=== PATIENT | female | born 2000 | race Caucasian/White ===

== ENCOUNTER 2019-07-08 01:08 | Emergency (ER) | payer OTHER ==
[~2019-07-08] VITALS: Ht 165.1 cm; Wt 46.3 kg
[2019-07-08 01:15] VITALS: BP 122/90
--- NOTE | 2019-07-08 01:15 | NUR ---
TO BED # 03 AMBULATORY
--- NOTE | 2019-07-08 01:27 | NUR ---
Dr. Oliva examining patient.
[2019-07-08] MEDS ORDERED: LORazepam 0.5 MG TAB PO ONE (01:35)
--- NOTE | 2019-07-08 01:49 | NUR ---
BIB FRIEND STATING THAT SHE WAS AT HOME IN BED WHEN SHE FELT LIKE HER LEFT ARM FELT LIKE IT WENT NUMB AND THEN SHE STARTED SHAKING. STATES WHEN SHE STOOD UP SHE STARTED FEELING LIKE SHE WOULD PASS OUT. PATIENT REPORTS SHE FEELS A LITTLE SHAKEY STILL BU NO OTHER SYMPTOMS AT THIS TIME. LUNGS CLEAR, ABD SOFT AND NON-TENDER.
[2019-07-08 01:51] LABS: BASOPHILS % (AUTO) 0.3 % (0.0-2.0); EOSINOPHILS % (AUTO) 0.3 % (0.0-4.0); HEMOGLOBIN 14.6 g/dL (12.0-16.0); LYMPHOCYTES # (AUTO) 1.9 K/uL (2.5-16.5); LYMPHOCYTES % (AUTO) 22.5 % (20.5-51.1); MEAN CORPUSCULAR HEMOGLOBIN 30 pg (27-31); MEAN CORPUSCULAR HGB CONC 33 g/dL (33-37); MEAN CORPUSCULAR VOLUME 89.3 fL (80-94); MONOCYTES # (AUTO) 0.6 K/uL (0.8-1.0); MONOCYTES % (AUTO) 7.2 % (1.7-9.3); NEUTROPHILS # (AUTO) 5.9 K/uL (1.8-7.7); NEUTROPHILS % (AUTO) 69.7 % (42.2-75.2); PLATELET COUNT (AUTO) 213 K/uL (140-450); RED BLOOD CELL COUNT(AUTO) 4.93 MIL/uL (4.20-5.40); RED CELL DISTRIBUTION WIDTH 13.3 % (11.6-13.7); WHITE BLOOD COUNT (AUTO) 8.4 K/uL (4.5-11.0)
--- NOTE | 2019-07-08 02:12 | NUR ---
PATIENT LAYING IN BED. STATES SHE FEELS BETTER AFTER TAKING THE ATIVAN.
[2019-07-08 02:30] LABS: BARBITURATE, URINE NEG. ng/ml (NEG <=200); BENZODIAZEPINE, URINE NEG. ng/mL (NEG <=200); CANNABINOID, URINE NEG. ng/mL (NEG <=50); COCAINE, URINE NEG. ng/mL (NEG <=300); OPIATE, URINE NEG. ng/mL (NEG <=2000); PHENCYCLIDINE SCREEN,URINE NEG. ng/mL (NEG <=25)
[2019-07-08 02:30] LABS: ALBUMIN 4.6 g/dL (3.4-5.0); ANION GAP 15.4 (8-16); CARBON DIOXIDE 26.4 mmol/L (21-32); CREATININE 0.7 mg/dL (0.6-1.3); FREE T4 (FREE THYROXINE) 0.93 ng/dL (0.76-1.46); POTASSIUM 3.8 mmol/L (3.5-5.1); THYROID STIMULATING HORMONE 2.59 uIU/mL (0.34-3.74); TOTAL BILIRUBIN 0.3 mg/dL (0.0-1.0)
[2019-07-08 02:58] VITALS: BP 120/89
--- NOTE | 2019-07-08 02:58 | NUR ---
Patient discharged with v/s stable. Written and verbal after care instructions given and explained. Patient verbalized understanding. Ambulatory with steady gait. All questions addressed prior to discharge. Advised to follow up with PMD.
== END 2019-07-08 02:58 | disposition home or self-care (01) ==
LOC: MED 01:08
DX: R55 Syncope and collapse (principal); F12.90 Cannabis use, unspecified, uncomplicated; F41.9 Anxiety disorder, unspecified; R00.2 Palpitations
CPT/HCPCS: 36415; 80053; 80305; 81025; 84439; 84443; 85025; 93005; 99284

== ENCOUNTER 2021-09-24 03:41 | Emergency (ER) | payer OTHER ==
[~2021-09-24] VITALS: Ht 165.1 cm; Wt 43.1 kg
[2021-09-24 03:48] VITALS: BP 116/88
--- NOTE | 2021-09-24 03:53 | NUR ---
PT AMBULATED TO BED #11
--- NOTE | 2021-09-24 04:02 | NUR ---
DR. MCKENZIE AT BEDSIDE
[2021-09-24] MEDS ORDERED: NACL 0.9% 1,000 ML IV ONE (04:10)
[2021-09-24] MEDS ORDERED: ONDANSETRON 4 MG/2 ML VIAL IVP ONE ×2 (04:10→06:20)
--- NOTE | 2021-09-24 04:15 | NUR ---
AT TIME OF IV INSERTION AND LAB DRAW, PT DECLINED BLOOD DRAW STATING "I DONT WANT MY BLOOD DRAWN. I ALREADY KNOW WHAT IS GOING WRONG. BUT COULD I GET SOME TORADOL FOR MY PAIN." DR. MCKENZIE NOTIFIED.
--- NOTE | 2021-09-24 04:20 | NUR ---
DR. MCKENZIE AT BEDSIDE
[2021-09-24] MEDS ORDERED: KETOROLAC 15 MG/ML VIAL IVP ONE (04:35)
[2021-09-24 05:33] LABS: BASOPHILS % (AUTO) 0.4 % (0.0-2.0); HEMATOCRIT 39.7 % (36-48); HEMOGLOBIN 13.3 g/dL (12.0-16.0); LYMPHOCYTES # (AUTO) 0.4 K/uL (2.5-16.5); LYMPHOCYTES % (AUTO) 7.8 % (20.5-51.1); MEAN CORPUSCULAR HEMOGLOBIN 30 pg (27-31); MEAN CORPUSCULAR HGB CONC 34 g/dL (33-37); MONOCYTES # (AUTO) 0.4 K/uL (0.8-1.0); MONOCYTES % (AUTO) 7.4 % (1.7-9.3); NEUTROPHILS # (AUTO) 4.3 K/uL (1.8-7.7); NEUTROPHILS % (AUTO) 84.4 % (42.2-75.2); PLATELET COUNT (AUTO) 116 K/uL (140-450); RED BLOOD CELL COUNT(AUTO) 4.51 MIL/uL (4.20-5.40); WHITE BLOOD COUNT (AUTO) 5.1 K/uL (4.8-10.8)
[2021-09-24 05:43] LABS: CARBON DIOXIDE 24.5 mmol/L (21-32); CREATININE 0.7 mg/dL (0.6-1.3); POTASSIUM 3.5 mmol/L (3.5-5.1)
[2021-09-24] MEDS ORDERED: ONDA8TAB87 PO (06:02)
[2021-09-24] MEDS ORDERED: ONDANSETRON 4 MG/2 ML VIAL ONE (06:07)
[2021-09-24 06:20] VITALS: BP 116/88
--- NOTE | 2021-09-24 06:20 | NUR ---
Patient discharged with v/s stable. Written and verbal after care instructions given and explained. Patient alert, oriented and verbalized understanding of instructions. Ambulatory with steady gait. All questions addressed prior to discharge. ID band removed. Patient advised to follow up with PMD. Rx of ONDANSETRON given. Patient educated on indication of medication including possible reaction and side effects. Opportunity to ask questions provided and answered.
== END 2021-09-24 06:20 | disposition home or self-care (01) ==
LOC: MED 03:41
DX: E86.0 Dehydration (principal); R11.2 Nausea with vomiting, unspecified; R19.7 Diarrhea, unspecified; R10.84 Generalized abdominal pain; F12.90 Cannabis use, unspecified, uncomplicated; Z88.1 Allergy status to other antibiotic agents; Z88.8 Allergy status to other drugs, medicaments and biological substances
CPT/HCPCS: 36415; 80048; 85025; 96361; 96374; 96375; 96376; 99284; J1885; J2405; J7030